=== PATIENT | male | born 1955 | race African-American/Black ===

== ENCOUNTER → 2019-09-26 | Outpatient (CLI) | payer MEDICARE ==
[~2019-09-26] MED LIST: ASPI-886 PO; ATOR40TA59 PO; CLOP75TA PO; HYDR-2145 PO; LISI-130 PO; MELO15TA23 PO; METF500T16 PO
--- NOTE | 2019-09-27 10:08 | RAD ---
MR#: [id number] Date of Study: 09/26/2019 Ordering Physician: RIVER SAXENA, Referring Physician: RIVER SAXENA, Tech: Erick Clark RDMS, Yulisa APPROVED REPORT Patient Location : OUT-PATIENT Indications Lower Extremity Edema : Bilateral Venous Insufficiency Findings Grayscale images of the bilateral saphenofemoral junctions are grossly unremarkable. The right great saphenous vein measures 8 mm and the left great saphenous vein measures 7 mm. The right greater and lesser saphenous veins did not show any evidence of reflux. Critical Notification Critical Value: No <Conclusion> 1. Negative for reflux in the bilateral lower extremities Signed by : River Saxena, Electronically Approved : 09/27/2019 10:07:13
--- NOTE | 2019-09-27 10:09 | RAD ---
MR#: [id number] Date of Study: 09/26/2019 Ordering Physician: RIVER SAXENA, Referring Physician: RIVER SAXENA, Tech: Erick Clark RDMS, PARAG APPROVED REPORT Patient Location: OUT-PATIENT Indications PAD Findings Ankle-brachial indices are as noted above: Right brachial 142 Right posterior tibial 104 Right dorsalis pedis 104 Left brachial 146 Left posterior tibial 164 Left dorsalis pedis 158 Ankle-brachial indices as noted above. The right DAVIDA is moderately abnormal at 0.7 and left DAVIDA is w ithin normal limits. Critical Notification Critical Value: No <Conclusion> 1. Moderate right-sided lower extremity arterial disease. Signed by : River Saxena, Electronically Approved : 09/27/2019 10:09:06
--- NOTE | 2019-09-27 10:12 | RAD ---
MR#: [id number] Date of Study: 09/26/2019 Ordering Physician: RIVER SAXENA, Referring Physician: RIVER SAXENA, Tech: Eirck Clark RDMS, RVT APPROVED REPORT Patient Location: OUT-PATIENT Indications PAD VELOCITY AND DOPPLER WAVEFORM ANALYSIS RIGHT cm/secWaveformSeverity LEFT cm/secWaveform Severity dCFA 37.0MonophasicdCFA 154.0Triphasic Prof Fem Art. 27.0MonophasicProf Fem Art. 79.0Triphasic Fem Art Prox. 76.0MonophasicFem Art Prox. 154.0Triphasic Fem Art Mid. 55.0MonophasicFem Art Mid. 109.0Triphasic Fem Art Dist. 63.0MonophasicFem Art Dist. 132.0Triphasic Pop Art(Fossa) 38.0MonophasicPop Art(AK) 104.0Triphasic CARBIDE OPERATOR Prox. 57.0MonophasicPTA Prox. 131.0Triphasic CARBIDE OPERATOR Dist. 47.0MonophasicPTA Dist. 136.0Triphasic Per Art Mid. 47.0MonophasicPer Art Mid. SULMA Prox. 18.0MonophasicATA Prox. 167.0Triphasic DPA 43MonophasicDPA 83Triphasic Findings Monophasic waveforms are noted in the right common femoral artery to the below-knee vessels. This is likely suggestive of a high-grade aortic inflow stenosis. On the left side grossly normal velocities are noted above the knee, below the knee there is likely m oderate disease involving the anterior tibial arteries. The peroneal artery is not well visualized. Critical Notification Critical Value: No <Conclusion> 1. Probable high-grade aortic inflow disease in the right common or external iliac artery. Signed by : River Saxena, Electronically Approved : 09/27/2019 10:11:13
== END | disposition home or self-care (01) ==
LOC: US 12:18
PROVIDERS: ATTEND Internal Medicine Cardiovascular Disease
DX: I87.2 Venous insufficiency (chronic) (peripheral) (principal); I74.5 Embolism and thrombosis of iliac artery; I73.9 Peripheral vascular disease, unspecified
CPT/HCPCS: 93922; 93925; 93970

== ENCOUNTER → 2019-10-11 | Outpatient (CLI) | payer MEDICARE | END | disposition home or self-care (01) | LOC: LAB 14:27 | PROVIDERS: ATTEND Internal Medicine Cardiovascular Disease | DX: Z01.812 Encounter for preprocedural laboratory examination (principal); Z20.828 Contact with and (suspected) exposure to other viral communicable diseases; I73.9 Peripheral vascular disease, unspecified | CPT/HCPCS: U0003-CS ==

== ENCOUNTER 2019-10-15 06:29 | Observation (INO) | payer MEDICARE ==
[2019-10-15] VITALS (17 sets, daily range): BP systolic 123–162; BP diastolic 70–102
[~2019-10-15] VITALS: Ht 172.7 cm; Wt 104.4 kg
[2019-10-15 08:04] LABS: BASO # 0.1 x10^3/uL (0.0-0.2); BASO % 1 % (0-3); EOS # 0.2 x10^3/uL (0.0-0.7); EOS % 2 % (0-3); HEMOGLOBIN 15.4 g/dL (13.0-17.5); LYMPH % 27 % (24-48); MEAN CORPUSCULAR HEMOGLOBIN 32 pg (25-35); MEAN CORPUSCULAR HGB CONC 33 g/dL (31-37); MEAN CORPUSCULAR VOLUME 96 fL (79-100); MONO # 1.1 x10^3/uL (0.0-1.1); MONO % 15 % (0-9); NEUT % 55 % (31-73); PLATELET COUNT 235 x10^3/uL (140-400); RED BLOOD COUNT 4.87 x10^6/uL (4.30-5.70); RED CELL DISTRIBUTION WIDTH 14.4 % (11.5-14.5); WHITE BLOOD COUNT 7.3 x10^3/uL (4.0-11.0)
[2019-10-15 08:15] LABS: CALCIUM 8.3 mg/dL (8.5-10.1); CREATININE 1.1 mg/dL (0.7-1.3)
[2019-10-15 08:25] LABS: PROTHROMBIN TIME PATIENT 13.6 SEC (11.7-14.0)
[2019-10-15] MEDS ORDERED: LISI-130 PO (08:44)
[2019-10-15] MEDS ORDERED: METF500T16 PO (08:44)
[2019-10-15] MEDS ORDERED: ATOR40TA59 PO (08:44)
[2019-10-15] MEDS ORDERED: MELO15TA23 PO (08:44)
[2019-10-15] MEDS ORDERED: HYDR-2145 PO (08:44)
[2019-10-15] MEDS ORDERED: LIDOCAINE 1% Multi-Dose 20 ML VIAL. ONE (09:30)
[2019-10-15] MEDS ORDERED: IODIXANOL 320 MG/ML 100 ML VIAL. ONE (10:01)
[2019-10-15] MEDS ORDERED: fentaNYL PF VIAL 250 MCG/5 ML VIAL ONE (10:19)
[2019-10-15] MEDS ORDERED: MIDAZOLAM HCL/PF 5 MG/5 ML VIAL. ONE (10:19)
[2019-10-15] MEDS ORDERED: HEPARIN for IV BOLUS 10,000 UNIT/10 ML VIAL. ONE (10:19)
[2019-10-15] MEDS ORDERED: IODIXANOL 320 MG/ML 100 ML VIAL. IART ONE (10:45)
[2019-10-15] MEDS ORDERED: MIDAZOLAM HCL/PF 5 MG/5 ML VIAL. IV ONE (10:45)
[2019-10-15] MEDS ORDERED: LIDOCAINE 1% Multi-Dose 20 ML VIAL. INJ ONE (10:45)
[2019-10-15] MEDS ORDERED: HEPARIN for IV BOLUS 10,000 UNIT/10 ML VIAL. IV ONE (10:45)
[2019-10-15] MEDS ORDERED: fentaNYL PF VIAL 250 MCG/5 ML VIAL IV ONE (10:45)
[2019-10-15] MEDS ORDERED: NITROGLYCERIN 200 MCG/2 ML SYRINGE FOR CATH/VASC LAB. ONE (11:02)
[2019-10-15] MEDS ORDERED: ASPIRIN 325 MG TABLET ONE (11:42)
[2019-10-15] MEDS ORDERED: CLOPIDOGREL BISULFATE 75 MG TABLET ONE ×2 (11:42)
[2019-10-15] MEDS ORDERED: ASPIRIN 325 MG TABLET PO ONE (11:45)
[2019-10-15] MEDS ORDERED: CLOPIDOGREL BISULFATE 75 MG TABLET PO ONE (11:45)
--- NOTE | 2019-10-15 12:27 | CARD ---
MR#: [id number] Date of Study: 10/15/2019 Ordering Physician: RIVER OLIVO, Referring Physician: RIVER OLIVO, Tech: Gail Alba RT (R) APPROVED REPORT Patient StatusOUT-PATIENT Air Plant Engineer: Gail Alba RT (R) Procedure(s) performed: FLUORO TIME: 15.2 MIN DOSE: 421 Gycm2 Contrast: 126ml Moderate Sedation: 80 MIN Abdominal Aortogram with bilateral ileofemoral run-off. PVI of the R external iliac HISTORY The patient is a 64 year-old male with a history of : diabetes mellitus with treatment, hypertension, dyslipidemia. INDICATION FOR PROCEDURE The indication(s) include : Bilateral claudication. PROCEDURE NARRATIVE After appropriate informed consent, the patient was brought to the skilled labor and placed in the supine position. Preprocedural timeout was completed and confirmed the right patient and procedure. The bila teral groins were prepped and draped in usual sterile fashion. Moderate sedation acheived with Fentan yl and Versed. The patient received 2000 units of Heparin for anticoagulation. Access: Under lidocaine local anesthesia, a 5Fr introducer sheath was placed in the LCFA via the marimar fied seldinger technique with a J-tipped guidewire and an 18g needle. Diagnostic angiography was then performed using a 5Fr Omniflush catheter with digital subtraction angiography. Next, the contralater al (RCFA) was accessed with the aid of the Omniflush catheter and a J-tipped guidewire. Repeat right lower extremity with DSA was performed. FINDINGS: AO: 154/86 AORTA: No signficant occlusive disease. RENAL arteries: Single right and left renal arteries were identified without significant disease. RCIA: No significant disease. REIA: Critical 95% stenosis in the mid segment. RIIA: No significant disease. RCFA: No significant disease. RSFA: No significant disease. RPOP: No significant disease. RTP trunk: No significant disease. RAT: No significant disease. RPT: No significant disease. RPER: Not visualized. LCIA: Mild diffuse irregularities of upto 20%. RAJAN: No significant disease. LIIA: No significant disease. LCFA: No significant disease. LSFA: No significant disease. LPOP: No significant disease. LAT: No significant disease. LTP trunk: No significant disease. LPT: No significant disease. LAT: Mid to disal 50% INTERVENTIONAL TECHNIQUE: PVI of the REIA Heparin was used for anticoagulation. The left sided sheath was exchanged for a 6Fr 45 destination sh eath over a J-tipped guidewire. The lesion was then angioplastied with a [place] 7.0 x 40mm balloon at nominal pressures and stented with an Absolute Pro 8 x 60 mm Self expanding stent which was then pos tdilated in the mid segments with 7.0 mm balloon at 6 deyanira. Final angiography revealed excellent stent expansion and no evidence of guide or wire related complications. Distal run-off was unchanged. At case completion, the left sided sheath was removed and hemostasis was achieved with an Angioseal yulia ce. No acute complications noted. Conclusion 1. [place] category 4 claudication. 2. Severe REIA stenosis treated with an Absolute Pro self expanding 8.0 x 60 mm stent. Recommendations ASA 81mg daily Plavix 75mg daily x 30 days Continue risk factor modification. Signed by : River Olivo, Electronically Approved : 10/15/2019 12:26:36
--- NOTE | 2019-10-15 15:46 | NUR ---
Patient Mr. Suresh Tyler 64/M s/p left femoral run off arrived on the unit at 1200, awake, alert, oriented x 4, denies pain. VS stable, dressing with minimal bleed. The patient was oriented to the unit, call light placed within reach.
[2019-10-16 03:23] VITALS: BP 140/104
[2019-10-16 07:00] VITALS: BP 153/87
[2019-10-16 11:00] VITALS: BP 147/96
--- NOTE | 2019-10-16 11:05 | NUR ---
SW following. Discussed with RN, pt from home, room air, has cpap at night for sleep apnea. RN advised no SW needs, anticipates discharge home today with self care. SW will continue to follow.
[2019-10-16] MEDS ORDERED: CLOP75TA PO (11:52)
[2019-10-16] MEDS ORDERED: ASPI-886 PO (11:52)
--- NOTE | 2019-10-16 11:55 | PDOC3 ---
SHAKIR MCDONALD RECORDS CLERK 10/16/19 1155: Discharge Summary Visit Information Date of Admission: Oct 15, 2019 Date of Discharge: Oct 16, 2019 Admitting Diagnosis: Severe PAD with claudications Final Diagnosis Severe PAD with claudications, S/P INSTRUCTOR WATCH ASSEMBLY/stent to REIA, HTN, DM2, HLP Brief Hospital Course Allergies Allergies Coded Allergies Type Severity Reaction Last Updated Verified No Known Drug Allergies 10/11/19 No Vital Signs Vital Signs Date Time Temp Pulse Resp B/P (MAP) Pulse Ox O2 Delivery O2 Flow Rate FiO2 10/16/19 11:00 98.1 76 16 147/96 (113) 90 Nasal Cannula 98.1 10/16/19 08:00 3.0 Lab Results Laboratory Tests Test 10/15/19 07:30 10/15/19 08:00 10/15/19 10:57 White Blood Count 7.3 x10^3/uL (4.0-11.0) Red Blood Count 4.87 x10^6/uL (4.30-5.70) Hemoglobin 15.4 g/dL (13.0-17.5) Hematocrit 47.0 % (39.0-53.0) Mean Corpuscular Volume 96 fL (79-100) Mean Corpuscular Hemoglobin 32 pg (25-35) Mean Corpuscular Hemoglobin Concent 33 g/dL (31-37) Red Cell Distribution Width 14.4 % (11.5-14.5) Platelet Count 235 x10^3/uL (140-400) Neutrophils (%) (Auto) 55 % (31-73) Lymphocytes (%) (Auto) 27 % (24-48) Monocytes (%) (Auto) 15 % (0-9) Eosinophils (%) (Auto) 2 % (0-3) Basophils (%) (Auto) 1 % (0-3) Neutrophils # (Auto) 4.0 x10^3/uL (1.8-7.7) Lymphocytes # (Auto) 2.0 x10^3/uL (1.0-4.8) Monocytes # (Auto) 1.1 x10^3/uL (0.0-1.1) Eosinophils # (Auto) 0.2 x10^3/uL (0.0-0.7) Basophils # (Auto) 0.1 x10^3/uL (0.0-0.2) Sodium Level 141 mmol/L (136-145) Potassium Level 4.0 mmol/L (3.5-5.1) Chloride Level 103 mmol/L (98-107) Carbon Dioxide Level 34 mmol/L (21-32) Anion Gap 4 (6-14) Blood Urea Nitrogen 17 mg/dL (8-26) Creatinine 1.1 mg/dL (0.7-1.3) Estimated GFR (Cockcroft-Gault) 81.0 Glucose Level 112 mg/dL (70-99) Calcium Level 8.3 mg/dL (8.5-10.1) Prothrombin Time 13.6 SEC (11.7-14.0) Prothromb Time International Ratio 1.1 (0.8-1.1) Activated Clotting Time 243 sec (92-181) Brief Hospital Course Mr. Tyler is a 64 yo male who has been having RLE pain. Duplex was done and revealed significant PAD to RLE. He had a planned abdominal aortogram and S/P INSTRUCTOR WATCH ASSEMBLY/stent to REIA and tolerated the procedure well. Left groin arteriotomy site intact, no swelling, erythema and neurovascular status to bilateral LE intact. Ambulatory, Denies any any CP or SOA. No significant arrhythmias overnight. VSS. AOx3, no pain, LSCTA. He is to continue his home meds with metformin to restart tomorrow. Discussed adequate BG control, monitored by his PCP. Continue statin and will utilize baby ASA indefinitely and plavix for 1 month. Follow up in office as scheduled. Will obtain baseline EKG and TTE prior to DC given his cardiac risk factors. Encouraged gradual increase in exercise and wt loss. Discharge Information Condition at Discharge: Stable Follow Up: Weeks (6-8 weeks) Disposition/Orders: D/C to Home Scheduled Aspirin (Aspirin Ec) 81 Mg Tablet., 1 TAB PO DAILY for PAD for 30 Days, #30 Ref 3 Prescribed by: SHAKIR MCDONALD on 10/16/19 1152 Atorvastatin Calcium (Atorvastatin Calcium) 40 Mg Tablet, 1 TAB PO QHS for rx, #90 Ref 3 (Reported) Entered as Reported by: WILLIAN LOPEZ on 10/15/19843 Last Taken: Unknown Dose on 10/14/19 Last Action: New Order on 10/15/19843 by WILLIAN LOPEZ Clopidogrel Bisulfate (Clopidogrel) 75 Mg Tablet, 1 TAB PO DAILY for PAD for 30 Days, #30 Ref 0 Prescribed by: SHAKIR MCDONALD on 10/16/19 1152 Hydrochlorothiazide (Hydrochlorothiazide Tablet ) 25 Mg Tablet, 25 MG PO DAILY for DIURETIC, Ref 0 (Reported) Entered as Reported by: WILLIAN LOPEZ on 10/15/19843 Last Taken: Unknown Dose on 10/14/19 Last Action: New Order on 10/15/19843 by WILLIAN LOPEZ Lisinopril (Lisinopril) 40 Mg Tablet, 1 TAB PO DAILY for rx, #30 Ref 5 (Reported) Entered as Reported by: WILLIAN LOPEZ on 10/15/19843 Last Taken: Unknown Dose on 10/14/19 Last Action: New Order on 10/15/19843 by WILLIAN LOPEZ Meloxicam (Meloxicam) 15 Mg Tablet, 15 MG PO DAILY for rx, (Reported) Entered as Reported by: WILLIAN LOPEZ on 10/15/19843 Last Taken: Unknown Dose on 10/14/19 Last Action: New Order on 10/15/19843 by WILLIAN LOPEZ Metformin Hcl (Metformin Hcl) 500 Mg Tablet, 500 MG PO BIDWMEALS for ANTI- DIABETIC, Ref 0 (Reported) Entered as Reported by: WILLIAN LOPEZ on 10/15/19843 Last Taken: Unknown Dose on 10/14/19 Last Action: New Order on 10/15/19843 by WILLIAN LOPEZ Patient Instructions Patient Instructions GENERAL INSTRUCTIONS: 1. Your dressing should be removed prior to leaving the hospital. 2. It is OK to shower the day after your procedure. 3. If you received stents, be sure to carry your stent information card with you in your wallet/purse at all times. 4. Call the office immediately at [phone] if you notice any fever or if there is redness, worsening tenderness/pain, increased bruising, or drainage from the puncture site. 5. Should you have bleeding from the site, lie down immediately & put pressure on the site. The pressure should be hard enough to stop the bleeding. Have the nearest person call 911. DO NOT try to drive to the ER with active bleeding. 6. If you notice a change in color, coolness to touch, or loss of feeling in the affected extremity, come to the emergency room. Please have someone drive you or call 911 if no one is available. DO NOT drive yourself. 7. If you normally take glucophage (metformin), please do not take this medicine for 48 hours following your procedure. 8. DO NOT STOP TAKING YOUR PLAVIX OR ASPIRIN UNLESS IT IS CLEARED BY A LEAD WEB DEVELOPER OF YOUR SALES AND MARKETING AGENT AT OUR OFFICE. 9. QUIT SMOKING: the [place] [employer], [place] [employer], & [place] [employer] have cessation resources available on their websites 10. Please have someone available to drive you home from the hospital as you may be limited by sedation medications given during the procedure. Femoral (Groin) access: 1. Do no lifting, pushing, pulling, bending, stooping, or recurrent stair climbing for 3 days following your procedure. 2. Once past the first 3 days, do not do any HEAVY exertion or lifting for one week following the procedure. No gym workouts, running, lifting greater than a gallon of milk, etc 3. Do not submerge in bath or pool for one week. OK to drive 3 days following your procedure, but if going long distance, do not go alone & take hourly breaks to get out of car and walk around. Call the office at [phone] for any questions or concerns. Justicifation of Admission Dx: Justifications for Admission: Justification of Admission Dx: Yes RIVER SAXENA MD 10/17/19 0750: Discharge Summary Assessment Assessment Late entry for 10/16/2019 Pt. seen and examined. Agree with above BELT REPAIRER note. Discharge Information Scheduled Aspirin (Aspirin Ec) 81 Mg Tablet., 1 TAB PO DAILY for PAD for 30 Days, #30 Ref 3 Prescribed by: SHAKIR MCDONALD on 10/16/19 1152 Atorvastatin Calcium (Atorvastatin Calcium) 40 Mg Tablet, 1 TAB PO QHS for rx, #90 Ref 3 (Reported) Entered as Reported by: WILLIAN LOPEZ on 10/15/19843 Last Taken: Unknown Dose on 10/14/19 Last Action: New Order on 10/15/19843 by WILLIAN LOPEZ Clopidogrel Bisulfate (Clopidogrel) 75 Mg Tablet, 1 TAB PO DAILY for PAD for 30 Days, #30 Ref 0 Prescribed by: SHAKIR MCDONALD on 10/16/19 1152 Hydrochlorothiazide (Hydrochlorothiazide Tablet ) 25 Mg Tablet, 25 MG PO DAILY for DIURETIC, Ref 0 (Reported) Entered as Reported by: WILLIAN LOPEZ on 10/15/19843 Last Taken: Unknown Dose on 10/14/19 Last Action: New Order on 10/15/19843 by WILLIAN LOPEZ Lisinopril (Lisinopril) 40 Mg Tablet, 1 TAB PO DAILY for rx, #30 Ref 5 (Reported) Entered as Reported by: WILLIAN LOPEZ on 10/15/19843 Last Taken: Unknown Dose on 10/14/19 Last Action: New Order on 10/15/19843 by WILLIAN LOPEZ Meloxicam (Meloxicam) 15 Mg Tablet, 15 MG PO DAILY for rx, (Reported) Entered as Reported by: WILLIAN LOPEZ on 10/15/19843 Last Taken: Unknown Dose on 10/14/19 Last Action: New Order on 10/15/19843 by WILLIAN LOPEZ Metformin Hcl (Metformin Hcl) 500 Mg Tablet, 500 MG PO BIDWMEALS for ANTI- DIABETIC, Ref 0 (Reported) Entered as Reported by: WILLIAN LOPEZ on 10/15/19843 Last Taken: Unknown Dose on 10/14/19 Last Action: New Order on 10/15/19843 by SHAKIR ASHER APRN Oct 16, 2019 11:55 RIVER SAXENA MD Oct 17, 2019 07:50
[2019-10-16] MEDS ORDERED: CLOPIDOGREL BISULFATE 75 MG TABLET PO ONE (12:00)
[2019-10-16] MEDS ORDERED: HEPARIN PF 500 UNIT/5 ML DISP.SYRIN. IVP ONE (12:15)
--- NOTE | 2019-10-16 12:26 | NUR ---
Discharge Note: ELIZABETH PRETTY JR Discharge instructions and discharge home medications reviewed with Patient and a copy given. All questions have been answered and understanding verbalized. The following instructions and handouts were given: d/c instructions Discontinued lines and drains: Peripheral IV intact. Patient discharged to Home or Self Care with Family Member via Wheelchair
--- NOTE | 2019-10-16 12:29 | EKG ---
[facility] [address] [place] [address] Test Date: 2019-10-16 Test Time: 12:22:10 Pat Name: ELIZABETH PRETTY Department: Room: 211 1 Gender: M Medical Review Coordinator: TED : 1955 Requested By: SHAKIR MCDONALD Order Number: [id number] Reading MD: Measurements Intervals [place] Rate: 68 P: 33 [place]: 194 QRS: 104 QRSD: 90 T: 51 QT: 420 QTc: 452 Interpretive Statements SINUS RHYTHM ATRIAL PREMATURE COMPLEX(ES) RIGHTWARD AXIS QRS(T) CONTOUR ABNORMALITY CONSIDER ANTEROSEPTAL MYOCARDIAL DAMAGE POSSIBLY ABNORMAL ECG RI6.02 No previous ECG available for comparison
--- NOTE | 2019-10-16 17:22 | CARD ---
MR#: [id number] Date of Study: 10/16/2019 Ordering Physician: RIVER SAXENA, Referring Physician: RIVER SAXENA, Tech: [facility] APPROVED REPORT EXAM: Two-dimensional and M-mode echocardiogram with Doppler and color Doppler. Other Information Quality : Good INDICATION Hypertension/HCVD 2D DIMENSIONS RVDd3.5 (2.9-3.5cm)Left Atrium(2D)4.3 (1.6-4.0cm) IVSd1.5 (0.7-1.1cm)Aortic Root(2D)3.0 (2.0-3.7cm) LVDd4.4 (3.9-5.9cm)LVOT Diameter2.4 (1.8-2.4cm) PWd1.3 (0.7-1.1cm)LVDs3.5 (2.5-4.0cm) FS (%) 21.6 %SV39.2 ml LVEF(%)45.0 (>50%) Aortic Valve AoV Peak Tyrone.111.5cm/sAoV VTI18.0cm AO Peak GR.5.0mmHgLVOT Peak Tyrone.77.9cm/s AO Mean GR.3mmHgAVA (VMAX)3.15cm2 LEELEE (VTI)3.80cm2 Mitral Valve MV E Nfiuzkgj24.3cm/sMV DECEL [id number] MV A Xkvhdhwd588.5cm/sE/A Ratio0.8 Pulmonary Vein S1 Vckwqncm91.4cm/sD2 Quxiheyd25.4cm/s LEFT VENTRICLE The left ventricle is normal size. There is mild concentric left ventricular hypertrophy. Left ventri kevin systolic function is mildly impaired. The Ejection Fraction is 45-50%. Septal motion consistent w ith conduction abnormality. There is mild global hypokinesis of the left ventricle. Transmitral Doppl er flow pattern is Grade I-abnormal relaxation pattern. RIGHT VENTRICLE The right ventricle is mildly dilated. The right ventricle is mildly hypertrophied. RV Systolic funct ion is mildly reduced. ATRIA The left atrium is mildly dilated. The right atrium is mildly dilated. The interatrial septum is inta ct with no evidence for an atrial septal defect or patent foramen ovale as noted on 2-D or Doppler im aging. AORTIC VALVE The aortic valve is moderately thickened but opens well. Doppler and Color Flow revealed no significa nt aortic regurgitation. There is no significant aortic valvular stenosis. MITRAL VALVE The mitral valve is normal in structure and function. Mitral annular calcification is mild. There is no evidence of mitral valve prolapse. There is no mitral valve stenosis. Doppler and Color Flow revea led no mitral valve regurgitation noted. TRICUSPID VALVE The tricuspid valve is normal in structure and function. Doppler and Color Flow revealed no tricuspid valve regurgitation noted. There is no tricuspid valve stenosis. PULMONIC VALVE The pulmonic valve is not well visualized. Doppler and Color Flow revealed trace pulmonic valvular re gurgitation. There is no pulmonic valvular stenosis. GREAT VESSELS The aortic root is normal in size. The ascending aorta is mildly dilated at 3.7 cm. The IVC is dilate d and collapses >50% with inspiration. PERICARDIAL EFFUSION There is no evidence of significant pericardial effusion. Critical Notification Critical Value: No <Conclusion> Left ventricle systolic function is mildly impaired. The Ejection Fraction is 45-50%. (Limited assess ment due to frequent PAC's during image acquisition) Septal motion consistent with conduction abnormality. There is mild global hypokinesis of the left ve ntricle. The right ventricle is mildly dilated. The ascending aorta is mildly dilated at 3.7 cm. Signed by : River Saxena, Electronically Approved : 10/16/2019 17:21:50
[2019-10-17] MEDS ORDERED: ASPIRIN ENTERIC COATED 81 MG TABLET.DR. PO SCH (08:00)
== END 2019-10-16 13:59 | disposition home or self-care (01) ==
LOC: CCL 06:29 → 2 NORTH 11:30 → INTOOBSV 11:30
PROVIDERS: ADMIT Internal Medicine Cardiovascular Disease; ATTEND Internal Medicine Cardiovascular Disease
DX: I70.213 Atherosclerosis of native arteries of extremities with intermittent claudication, bilateral legs (principal); E11.9 Type 2 diabetes mellitus without complications; E78.5 Hyperlipidemia, unspecified; I10 Essential (primary) hypertension; Z79.899 Other long term (current) drug therapy; Z79.84 Long term (current) use of oral hypoglycemic drugs; Z79.82 Long term (current) use of aspirin
CPT/HCPCS: 36415; 37221; 75625; 75716; 80048; 85025; 85347; 85610; 93005; 93306; 96374; 96375; 96376; 99152; 99153; C1713; C1725; C1760; C1769; C1876; C1892; C1894; G0269; G0378; G0379; J1642; J1644; J2250; J3010; J3490; Q9967; C1771

== ENCOUNTER → 2020-06-18 | Outpatient (CLI) | payer MEDICARE ==
--- NOTE | 2020-06-18 11:46 | RAD ---
MR#: [id number] Date of Study: 06/18/2020 Ordering Physician: RIVER SAXENA, Referring Physician: RIVER SAXENA, Tech: Umang Bravo MBA, RDMS, RVT, RDCS, RTR APPROVED REPORT Patient Location: OUT-PATIENT Indications PAD VELOCITY AND DOPPLER WAVEFORM ANALYSIS RIGHT cm/secWaveformSeverity LEFT cm/secWaveform Severity dCFA 167.0TriphasicdCFA 114.0Triphasic Prof Fem Art. 73.0TriphasicProf Fem Art. 62.0Triphasic Fem Art Prox. 136.0TriphasicFem Art Prox. 80.0Triphasic Fem Art Mid. 106.0TriphasicFem Art Mid. 84.0Triphasic Fem Art Dist. 105.0TriphasicFem Art Dist. 72.0Triphasic Pop Art(Fossa) 73.0TriphasicPop Art(AK) 73.0Triphasic REGISTERED RESPIRATORY TECHNICIAN Prox. 94.0TriphasicPTA Prox. 98.0Triphasic REGISTERED RESPIRATORY TECHNICIAN Dist. 109.0TriphasicPTA Dist. 111.0Triphasic Per Art Mid. 66.0TriphasicPer Art Mid. SULMA Prox. 102.0TriphasicATA Prox. 99.0Triphasic DPA 60TriphasicDPA 64Triphasic Findings Grayscale images the bilateral lower extremity arterial vessels demonstrate mild diffuse intimal hype rplasia and mild diffuse plaque. No focal high-grade obstruction is noted on spectral waveforms and color Doppler imaging. Normal velocities are noted. There is three-vessel runoff on the right and o n the left side the peroneal artery is not well visualized. Waveforms are mostly triphasic throughou t the lower extremity arterial course. Critical Notification Critical Value: No <Conclusion> 1. No significant lower extremity arterial disease identified. 2. Three-vessel runoff on the right side and two-vessel runoff on the left side with nonvisualizatio n of the left peroneal artery Signed by : River Saxena, Electronically Approved : 06/18/2020 11:46:17
--- NOTE | 2020-06-18 11:47 | RAD ---
MR#: [id number] Date of Study: 06/18/2020 Ordering Physician: RIVER SAXENA, Referring Physician: RIVER SAXENA, Tech: Umang Bravo MBA, RDMS, RVT, RDCS, RTR APPROVED REPORT Patient Location: OUT-PATIENT Indications PAD Findings Right arm 148, left arm 152 Right ankle PT 164, DP 159 Left ankle PT 158, DP 156 Right DAVIDA 1.1, left DAVIDA 1.0 Critical Notification Critical Value: No <Conclusion> 1. Normal bilateral DAVIDA. Signed by : River Saxena, Electronically Approved : 06/18/2020 11:47:02
== END ==
LOC: US 10:04
PROVIDERS: ATTEND Internal Medicine Cardiovascular Disease
DX: I70.203 Unspecified atherosclerosis of native arteries of extremities, bilateral legs (principal)
CPT/HCPCS: 93922; 93925